=== PATIENT | female | born 1990 | race Caucasian/White ===

== ENCOUNTER 2019-05-08 07:43 | Emergency (ER) | payer OTHER, SELFPAY ==
[2019-05-08] MEDS ORDERED: predniSONE 20 MG TAB ONE (08:07)
== END 2019-05-08 08:15 | disposition home or self-care (01) ==
LOC: NAV ERS 07:43
DX: T78.40XA Allergy, unspecified, initial encounter (principal); R22.0 Localized swelling, mass and lump, head; F32.9 Major depressive disorder, single episode, unspecified; F17.210 Nicotine dependence, cigarettes, uncomplicated
CPT/HCPCS: 99284; J7512